=== PATIENT | female | born 1950 | race Caucasian/White ===

== ENCOUNTER 2020-01-28 18:15 | Observation (INO) | payer MEDICARE, BC ==
[~2020-01-28] VITALS: Ht 165.1 cm; Wt 66.4 kg
[2020-01-28] MEDS ORDERED: normal saline 1000ML IV soln IVB ONE (18:25)
[2020-01-28] MEDS ORDERED: aspirin 81mg tab.chew PO ONE (18:25)
[2020-01-28 18:47] LABS: BASOPHILS # (AUTO) 0.1 X10'3 (0-0.2); HEMATOCRIT 41.2 % (35.0-45.0); MONOCYTES # (AUTO) 0.7 X10'3 (0-0.9); RED BLOOD COUNT 4.12 X10'6 (4.20-5.60)
[2020-01-28 18:49] LABS: EOSINOPHILS # (AUTO) 0.2 X10'3 (0-0.9); EOSINOPHILS % (AUTO) 3.2 % (0-6); HEMOGLOBIN 13.7 g/dl (12.0-16.0); LYMPHOCYTES % (AUTO) 26.4 % (21-51); MEAN CORPUSCULAR HEMOGLOBIN 33.3 PG (27.0-31.0); MEAN CORPUSCULAR HGB CONC 33.3 g/dL (33.0-36.5); MEAN PLATELET VOLUME 7.4 FL (7.4-10.4); MONOCYTES % (AUTO) 9.7 % (2-12); NEUTROPHILS # (AUTO) 4.5 X10'3 (1.8-7.7); NEUTROPHILS % (AUTO) 59.7 % (42-75); PLATELET COUNT 211 X10'3 (140-440); RED CELL DISTRIBUTION WIDTH 13.2 % (11.5-14.5); WHITE BLOOD COUNT 7.5 X10'3 (4.5-11.0)
[2020-01-28] MEDS ORDERED: metoprolol tartrate 1mg/ml inj IV ONE (19:05)
[2020-01-28 19:07] LABS: ALBUMIN 3.7 G/DL (3.4-5.0); ALKALINE PHOSPHATASE 43 IU/L (46-116); ANION GAP 9 (8-16); ASPARTATE AMINO TRANSFERASE 36 U/L (10-37); BILIRUBIN,TOTAL 0.4 MG/DL (0.1-1.0); BLOOD UREA NITROGEN 22 MG/DL (7-18); BUN/CREATININE RATIO 26.5 (6.6-38.0); CALCIUM 8.9 MG/DL (8.5-10.1); CHLORIDE 107 MMOL/L (99-107); CREATININE 0.83 MG/DL (0.40-0.90); GLUCOSE 89 MG/DL (70-104); SODIUM 143 MMOL/L (135-145); TOTAL CARBON DIOXIDE 27.3 MMOL/L (24-32); TOTAL PROTEIN 7.3 G/DL (6.4-8.2); eGFR 68 ML/MIN
[2020-01-28 19:18] LABS: ALANINE AMINOTRANSFERASE < 6 U/L (12-78)
[2020-01-28] MEDS ORDERED: enoxaparin 100mg/ml syringe SUBCUT ONE (19:35)
[2020-01-28] MEDS ORDERED: enoxaparin 30mg/0.3ml syringe SUBCUT ONE (19:45)
[2020-01-28] MEDS ORDERED: enoxaparin 40mg/0.4ml syringe SUBCUT ONE (19:45)
[2020-01-28] MEDS ORDERED: magnesium Cl slow-release 64mg tablet PO PRN (20:00)
[2020-01-28] MEDS ORDERED: magnesium 2GM in 50ml NS 50 ML IV PRN (20:00)
[2020-01-28] MEDS ORDERED: acetaminophen 325mg tablet PO PRN (20:00)
[2020-01-28] MEDS: K and/or MAG REPLACEMENT MC SCH (20:00)
[2020-01-28] MEDS ORDERED: potassium CL 10mEq/100ml bag 100 ML IV PRN ×2 (20:00)
[2020-01-28] MEDS ORDERED: ondansetron/PF 4mg/2ml inj IV PRN (20:00)
[2020-01-28] MEDS ORDERED: potassium Cl 20 mEq SR tablet PO PRN ×2 (20:00)
[2020-01-28] MEDS ORDERED: magnesium 4gm in 100ml NS 100 ML IV PRN (20:00)
[2020-01-28 21:00] VITALS: BP 155/70
[2020-01-29 01:18] LABS: BASOPHILS % (AUTO) 0.9 % (0-1); EOSINOPHILS # (AUTO) 0.2 X10'3 (0-0.9); EOSINOPHILS % (AUTO) 4.9 % (0-6); HEMATOCRIT 34.7 % (35.0-45.0); HEMOGLOBIN 11.7 g/dl (12.0-16.0); LYMPHOCYTES # (AUTO) 1.4 X10'3 (1.1-4.8); LYMPHOCYTES % (AUTO) 33.4 % (21-51); MEAN CORPUSCULAR HEMOGLOBIN 34.2 PG (27.0-31.0); MEAN CORPUSCULAR HGB CONC 33.8 g/dL (33.0-36.5); MEAN CORPUSCULAR VOLUME 100.9 FL (78-98); MEAN PLATELET VOLUME 7.2 FL (7.4-10.4); MONOCYTES # (AUTO) 0.4 X10'3 (0-0.9); MONOCYTES % (AUTO) 9.9 % (2-12); NEUTROPHILS # (AUTO) 2.1 X10'3 (1.8-7.7); NEUTROPHILS % (AUTO) 50.9 % (42-75); PLATELET COUNT 172 X10'3 (140-440); RED BLOOD COUNT 3.43 X10'6 (4.20-5.60); RED CELL DISTRIBUTION WIDTH 13.4 % (11.5-14.5); WHITE BLOOD COUNT 4.1 X10'3 (4.5-11.0)
[2020-01-29 01:38] LABS: ALBUMIN 3.1 G/DL (3.4-5.0); ANION GAP 5 (8-16); BLOOD UREA NITROGEN 21 MG/DL (7-18); BUN/CREATININE RATIO 23.6 (6.6-38.0); CALCIUM 7.9 MG/DL (8.5-10.1); CHLORIDE 111 MMOL/L (99-107); CHOL/HDL RATIO 1.8 (0.00-4.99); CHOLESTEROL 168 MG/DL (0-200); CREATININE 0.89 MG/DL (0.40-0.90); GLUCOSE 77 MG/DL (70-104); HDL CHOLESTEROL 95 MG/DL (35-60); LDL CHOLESTEROL 71 MG/DL (50-100); MAGNESIUM 2.1 MG/DL (1.5-2.4); POTASSIUM 3.7 MMOL/L (3.5-5.1); SODIUM 144 MMOL/L (135-145); TOTAL CARBON DIOXIDE 28.5 MMOL/L (24-32); TRIGLYCERIDES 46 MG/DL (20-135); eGFR 63 ML/MIN
[2020-01-29 02:00] VITALS: BP 132/62
[2020-01-29 06:00] VITALS: BP 119/68
--- NOTE | 2020-01-29 06:20 | NUR ---
Problems reprioritized. Patient report given, questions answered & plan of care reviewed with Randy HAWLEY.
--- NOTE | 2020-01-29 06:36 | NUR ---
Patient in room PCU 3028. I have received report from Bhupendra HAWLEY and had the opportunity to ask questions and assume patient care.
[2020-01-29] MEDS: K and/or MAG REPLACEMENT MC SCH (08:00)
[2020-01-29] MEDS ORDERED: CELE200C PO ×2 (10:29→14:42)
[2020-01-29 11:00] VITALS: BP 140/61
[2020-01-29 13:18] LABS: D-DIMER 0.26 MG/L FEU (0-0.50)
[2020-01-29] MEDS ORDERED: LISI-604 PO (14:42)
--- NOTE | 2020-01-29 16:39 | NUR ---
pt is stable for discharge, discharge instructions reviewed w pt and and all questions answered, new medication prescriptions called in to [facility], telemonitor removed and returned, piv dc'ed and clean dry dressing in place, pt discharge to home at 1603, wheeled down to [facility] w/ hospital staff to private vehicle and , all belonging w/ pt at time of discharge.
== END 2020-01-29 16:45 | disposition home or self-care (01) ==
LOC: ER 18:16 → ED HOLD 19:56 → PCU 3S 20:55
PROVIDERS: ADMIT Internal Medicine; ATTEND Internal Medicine
DX: I47.1 Supraventricular tachycardia (principal); R42 Dizziness and giddiness; I10 Essential (primary) hypertension; I16.0 Hypertensive urgency; I24.8 Other forms of acute ischemic heart disease; R79.89 Other specified abnormal findings of blood chemistry; Z96.642 Presence of left artificial hip joint; Z88.5 Allergy status to narcotic agent
CPT/HCPCS: 36415; 71045; 80048; 80053; 80061; 83735; 83880; 84443; 84484; 85025; 85379; 85610; 87081; 93005; 93306; 96361; 96372; 96374; 99291; G0378; J1650; J7030; J3490